=== PATIENT | male | born 1965 | race Caucasian/White ===

== ENCOUNTER 2016-07-02 19:26 | Emergency (ER) | payer BC ==
[~2016-07-02] VITALS: Ht 185.4 cm; Wt 90.0 kg
[2016-07-02] MEDS ORDERED: SODIUM CHLORIDE FLUSH 3 ML SYR IV PRN (20:00)
[2016-07-02] MEDS ORDERED: NS IV 500 ML 500 ML IV SCH (20:00)
[2016-07-02] MEDS ORDERED: SODIUM CHLORIDE FLUSH 10 ML SYR IV PRN (20:00)
[2016-07-02] MEDS ORDERED: METOCLOPRAMIDE 10 MG/2 ML (REGLAN) VIAL IV ONE ×2 (20:00→20:50)
[2016-07-02] MEDS ORDERED: diphenhydrAMINE 50 MG/ML INJ (BENADRYL) IV ONE (20:00)
[2016-07-02] MEDS ORDERED: SUMAtriptan 6 MG/0.5 ML (IMITREX) INJ SC ONE (20:50)
[2016-07-02 21:49] VITALS: BP 138/66
== END 2016-07-02 21:40 | disposition home or self-care (01) ==
LOC: ED 19:28
DX: G43.909 Migraine, unspecified, not intractable, without status migrainosus (principal)
CPT/HCPCS: 96374; 96375; 96376; 99284; J1200; J2765; J3030; J7040; 96372; 99282